=== PATIENT | female | born 1955 | race Caucasian/White ===

== ENCOUNTER → 2024-07-29 09:54 | Outpatient (REF) | payer MEDICARE, OTHER, SELFPAY | LOC: HWWDC 09:54 | PROVIDERS: ATTENDING PHYSICIAN Physician Assistant | DX: Z12.31 Encounter for screening mammogram for malignant neoplasm of breast (principal) | CPT/HCPCS: 77063; 77067 ==

== ENCOUNTER → 2024-08-06 09:58 | Outpatient (REF) | payer MEDICARE, OTHER, SELFPAY | LOC: WDC 09:58 | PROVIDERS: ATTENDING PHYSICIAN Physician Assistant | DX: R92.8 Other abnormal and inconclusive findings on diagnostic imaging of breast (principal) | CPT/HCPCS: 76642; 77065 ==

== ENCOUNTER → 2024-08-13 06:35 | Outpatient (REF) | payer MEDICARE, OTHER, SELFPAY ==
--- NOTE | 2024-08-13 12:55 | OID.BR.INTR ---
[facility] Breast Navigator - Initial
- -
Date of Contact: 08/13/24
Met with patient. Patient given written information on navigator service available at [facility]. Will follow up as needed per protocol.
== END ==
LOC: WDC 06:35
PROVIDERS: ATTENDING PHYSICIAN Physician Assistant
DX: N63.12 Unspecified lump in the right breast, upper inner quadrant (principal)
CPT/HCPCS: 88305; 19081; 19083; 76098; 88341; 88360; A4648

== ENCOUNTER → 2024-10-06 08:48 | Outpatient (REF) | payer MEDICARE, OTHER, SELFPAY | LOC: WDC 08:48 | PROVIDERS: ATTENDING PHYSICIAN Surgery | DX: C50.411 Malignant neoplasm of upper-outer quadrant of right female breast (principal) | CPT/HCPCS: 38792; 76942; A9541 ==

== ENCOUNTER 2024-10-07 06:07 | Inpatient (IN) | payer MEDICARE, OTHER, SELFPAY ==
[2024-09-17 11:22] LABS: Hematocrit 33.3 % (37.0-47.0); Hemoglobin 11.8 g/dL (12.0-16.0); Mean Corp Hgb Conc. 35.4 g/dL (33.0-37.0); Mean Corpuscular Hgb 32.4 pg (27.0-31.0); Mean Corpuscular Volume 91.5 fL (81.0-99.0); Mean Platelet Volume 9.6 fL (7.4-10.4); Platelet Count 220 10^3/uL (130-400); Red Blood Cell Count 3.64 10^6/uL (4.20-5.40); Red Cell Dist. Width 11.9 % (11.5-14.5); White Blood Cell Count 6.3 10^3/uL (4.8-10.8)
[2024-09-17 13:00] LABS: ALT (SGPT) 18 U/L (0-35); AST (SGOT) 26 U/L (14-36); Alkaline Phosphatase 61 U/L (38-126); Blood Urea Nitrogen 8 mg/dl (7-17); Calcium 9.2 mg/dl (8.4-10.2); Carbon Dioxide 31 mmol/L (22-30); Chloride 87 mmol/L (98-107); Glucose 104 mg/dl (70-99); Potassium 3.2 mmol/L (3.5-5.1); Sodium 129 mmol/L (135-145); Total Bilirubin 0.8 mg/dl (0.2-1.3); Total Protein 6.3 g/dl (6.3-8.2); eGFR > 60.00
[2024-09-17 13:10] LABS: Prealbumin (Transthyretin) 19.7 mg/dl (17.6-36.0)
[2024-09-17 13:26] LABS: Vitamin D, 25-OH*** 33.2 ng/mL (30-80)
[2024-09-17 13:57] VITALS: BMI 24.2
--- NOTE | 2024-09-30 11:01 | PTCARENOTE ---
Addendum entered by Rowena Deras RN 09/30/24 11:09:
Ana in Dr. Santana's office made aware also.
Original Note:
Radha and Becky in office made aware of K 3.2 and Na 129.
--- NOTE | 2024-09-30 12:34 | CM ---
CM left message for patient to discuss home care options.
--- NOTE | 2024-09-30 14:55 | PTCARENOTE ---
Addendum entered by Jeanette Escobar 09/30/24 15:33:
Dr Mathur aware of labwork. Patient to have repeat BMP as outpatient prior to surgery.
Original Note:
Abnormal Na 129, K+3.2 collected 09/17/24, and Abnormal ECG 09/17/[address] Lewis.
Patient will need repeat BMP. No further intervention requested for ECG.
Above lab results from 09/17/24 sent by TT to Noe at Dr Mathur's office. Awaiting further recommendation.
--- NOTE | 2024-10-02 12:28 | CM ---
Addendum entered by Nkechi Alvarado RN 10/02/24 13:50:
CM spoke with patient via phone. CM confirmed demographics. Patient lives independently with . Patient does not have a history of VN, SNF or DME. Patient is active with her PCP. Patient uses [facility] for medication services.
CM discussed home care options. Patient stated that she didn't understand why she would need a VN. CM explained VN would provide support for patient's drains and would provide education. CM further explained nursing staff would provide intitial
education on drain care prior to leaving hospital. Patient was appreciative of explanation and stated it made her 'feel better' that an RN would come out to assist. Patient mistook VN as DIRECTOR OF CONTENT AND PROGRAMMING care and she felt that she was independent enough to not
need that service.
Patient expressed relief that she would have support at home. She stated that she would be agreeable to [facility]. CM updated [facility] admission RN.
CM provided patient with this CM's contact information and encourage further questions.
PLAN: home with [facility].
Original Note:
CM left message on patient's cell phone to discuss home care.
--- NOTE | 2024-10-02 14:03 | VNURNOTE ---
Chart reviewed. [facility] liaison will meet with patient after admitted to . Referral placed in [facility].
[2024-10-07] VITALS (13 sets, daily range): BP systolic 30–140; BP diastolic 67–87; BMI 24.2
[2024-10-07] MEDS: TYLENOL 1000 MG PO ×3 (07:04→19:36)
[2024-10-07] MEDS: LOVENOX 40 MG SC (07:04)
--- NOTE | 2024-10-07 07:05 | W.SUR.PREOP ---
Pre-Operative Surgical Note
-
I have examined this patient prior to the performance of the scheduled procedure.
The patient's condition is unchanged from the time of the current History and
Physical and the patient is able to undergo the scheduled procedure.
[2024-10-07] MEDS: NORMOSOL-R/PLASMALYTE-A 1000 IV (07:12)
[2024-10-07 08:21] LABS: Carbon Dioxide 29 mmol/L (22-30); Chloride 94 mmol/L (98-107); Potassium 3.2 mmol/L (3.5-5.1); Sodium 133 mmol/L (135-145)
--- NOTE | 2024-10-07 11:16 | W.IMMPOSTOP ---
Surgical Immed Post Op Note
-
Primary Surgeon: Kevan
Assisting Surgeon: None
Pre-op Diagnosis: Right breast DCIS
Post-op Diagnosis: Right breast DCIS
Procedure Performed: Right mastectomy and sentinel node mapping and biopsy
Anesthesia Type: General LMA
Specimen / Cultures: Right breast, sentinel nodes
Estimated Blood Loss: 10cc
Complications: None
Operative Findings: Neg nodes on frozen
--- NOTE | 2024-10-07 11:19 | OR.RPT ---
Operative Report
Operative Report
Pre-Op DX: Right breast DCIS
Post-Op DX: Right breast DCIS
Procedure: right mastectomy sentinel lymph node mapping and biopsy
Date of surgery: 10/07/24
Surgeon: Kevan
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 Santana.
On the day prior to the procedure the patient presented to the [facility] center where technetium radiotracer was injected into the breast parenchyma. On the day of the surgery the patient presented to same-day surgical services. She was
prepped and DVT and antibiotic prophylaxis were provided. She verified site and procedure.
Was taken to the operating room and in the supine position general anesthesia was induced. Right breast and axilla were prepped and draped in usual sterile fashion. An appropriate timeout was performed by all staff members. Plastic surgery had
marked the incision which was circumareolar with possible extension inferiorly to form a keyhole incision.
A complete circumareolar incision was made sharply with the blade. Skin flaps were elevated using the PlasmaBlade and a lighted retractor. Dissection was carried down to the chest wall and the breast was taken off the chest and in a superior to
inferior direction. Time out of body was noted and the specimen was oriented for the pathologist and sent for immediate analysis.
Next the axilla was entered by incising clavipectoral fascia and a neoprobe identified 3 sentinel node packets which were excised. Feeding vessels were controlled with 3-0 silk. Frozen section analysis on the nodes was negative. Hemostasis was
verified. Warm pack was placed and the resection bed and plastic surgery entered to begin the reconstructive portion of the procedure.
All sponge needle and instrument counts were correct at this juncture and the blood loss to this point was 10 cc.
([id number], [id number])
Pangburn Node Bx Breast Cancer
Pangburn Node Bx Breast Cancer
Operation performed with curative intent: Yes
Tracer(s) to ID Pangburn Nodes in Non-Neoadjuvant setting: Radioactive Tracer
Tracer(s) to ID Sentinal Nodes in the Neoadjuvant Setting: N/A
All nodes at end of dye-filled Lymphatic Channel removed: N/A
All Significantly Radioactive Nodes were removed: Yes
All Palpably Suspicious Nodes were Removed: Yes
Bx Proven Pos Nodes Marked Prior to Chemo ID'd & Removed: N/A
--- NOTE | 2024-10-07 11:45 | W.IMMPOSTOP ---
Surgical Immed Post Op Note
-
Primary Surgeon: RHODA Santana MD
Assisting Surgeon:
Pre-op Diagnosis: Right breast CA
Post-op Diagnosis: Same
Procedure Performed: Right immediate breast reconstruction with tissue nursing home administrator, ADM mesh
Anesthesia Type: GA
Specimen / Cultures: Per Dr. Mathur
Estimated Blood Loss: 5cc
Complications: None
Operative Findings: As expected
--- NOTE | 2024-10-07 11:45 | OR.RPT ---
Operative Report
Operative Report
Surgeon: RHODA Santana MD
Preoperative diagnosis: Breast cancer
Postoperative diagnosis: Same
Procedure:
1. Immediate right breast reconstruction with prepectoral tissue drink waiter
2. Total anterior coverage technique for ADM wrap
Complications: None
Anesthesia: General
EBL:
[employer]er size: 14 cm
Indications for procedure: Patient was referred to me by Dr. Mathur with a recent diagnosis of breast cancer. She was planned to undergo unilateral mastectomy. We discussed her options for breast reconstruction at length including implant based
and autologous options. The patient opted for immediate reconstruction with tissue expanders. She understands that the final reconstruction will be staged. We also discussed the use of ADM and spy angiography. Risks include reconstructive
failure, capsular contracture, infection, delayed wound healing, mastectomy skin flap necrosis, hematoma, seroma and need for repeat procedure. Patient understood these risks and desired to proceed. Consents were signed accordingly.
Procedure in detail: Patient was identified the preoperative area and the surgical site was confirmed to be the breast. All questions were answered and consents were confirmed. Patient was then sat upright and normal anatomical landmarks were
marked including midline and inframammary fold. Patient was then taken back to the operating room placed supine on the table. She was prepped and draped in the usual sterile fashion using ChloraPrep solution. A Sandra catheter was placed. A
timeout for patient safety was performed was confirmed that bilateral SCDs were in place and preoperative antibiotics administered. The procedure began with Dr. Mathur first performing the mastectomy. Her op report will be dictated separately.
When I entered the procedure, the mastectomy had been completed. As such I inspected the wound bed of the chest wall and ensured meticulous hemostasis. The base width was measured and appropriate tissue drink waiter was selected. Two 6 x 16 sheets of
Cortiva ADM were soaked in dilute Betadine solution and passed through the skin graft mesher on carrier of 1-1.5. This construct was then draped around the tissue drink waiter in a total anterior coverage technique. The drink waiter ADM construct was then
sutured to the chest wall with a series of 2-0 silk sutures. Pectoralis and intercostal blocks were performed with Marcaine. 2 drains were then placed in the preaxial area line with a long subcutaneous tunnel and sutured in place with 2-0 Prolene
sutures. The wound was irrigated with double antibiotic solution and dilute Betadine. The mastectomy incisions were then closed with a series of 3-0 Vicryl's in the deep subcutaneous tissues followed by 3-0 and 4-0 Monocryl's in the deep dermis
and superficial skin.
The wounds were dressed accordingly and a supportive bra was placed. The patient was extubated taken to the PACU for further care. All counts were correct at the end the case was performed out complication.
[2024-10-07] MEDS: D5/0.45%NSS with KCL 20 MEQ 1000 IV ×2 (12:56→22:10)
[2024-10-07] MEDS: ULTRAM 100 MG PO (14:04)
--- NOTE | 2024-10-07 14:51 | VNURNOTE ---
Home Health Liaison met with patient and spouse at bedside to discuss [facility] nurse/therapy, visits, schedule and homebound status. Patient is agreeable and understands that visits at home will be 2-3 x per week to assess and teach medical and drain
management. [facility]2 [facility] after [facility] .
[facility]
[2024-10-07] MEDS: ANCEF 5 IV (15:29)
[2024-10-07] MEDS: LIPITOR 10 MG PO (17:23)
[2024-10-07] MEDS: BUSPAR 10 MG PO (19:36)
[2024-10-07] MEDS: NEURONTIN 600 MG PO (19:36)
[2024-10-07] MEDS: NEURONTIN 300 MG PO (21:47)
[2024-10-07] MEDS: VALIUM 5 MG PO (22:10)
[2024-10-08] MEDS: ANCEF 5 IV ×2 (00:18→07:46)
[2024-10-08] MEDS: TYLENOL 1000 MG PO ×2 (01:15→07:45)
[2024-10-08 04:00] VITALS: BP 135/80
[2024-10-08 07:31] LABS: Hematocrit 35.2 % (37.0-47.0); Hemoglobin 12.4 g/dL (12.0-16.0)
[2024-10-08 07:45] VITALS: BP 147/89
[2024-10-08] MEDS: ALTACE 10 MG PO (07:45)
[2024-10-08] MEDS: NEURONTIN 600 MG PO (07:45)
[2024-10-08] MEDS: LIPITOR 10 MG PO (07:46)
[2024-10-08] MEDS: TENORMIN 50 MG PO (07:46)
[2024-10-08] MEDS: BUSPAR 10 MG PO (07:46)
[2024-10-08] MEDS: ULTRAM 100 MG PO (08:02)
[2024-10-08 08:50] LABS: Blood Urea Nitrogen 22 mg/dl (7-17); Calcium 8.3 mg/dl (8.4-10.2); Carbon Dioxide 28 mmol/L (22-30); Chloride 91 mmol/L (98-107); Estimated Creatinine Clearance 50 ml/min; Glucose 126 mg/dl (70-99); Potassium 4.3 mmol/L (3.5-5.1); Sodium 131 mmol/L (135-145); eGFR > 60.00
--- NOTE | 2024-10-08 09:40 | CM ---
Cm reviewed medical records. Patient is anxious to be discharged. Plan for home with [facility]
PLAN: [facility].
--- NOTE | 2024-10-08 10:58 | W.DCSUMMARY ---
Discharge Summary
Discharge Data
Date of Admission: 10/07/24
Date of Discharge: 10/08/24
-
Pending Results: No
Hospital Course
Routine postoperative course following right mastectomy and immediate drapery hanger based reconstruction. Required some electrolyte correction. Chronic hyponatremia to be addressed by primary care physician.
Discharged with VN and close surgical follow up.
Discharge Plan
-
Patient Disposition: Home (Routine Discharge)
Discharge Diagnosis/Procedures: S/P R mastectomy and immediate drapery hanger recon
Condition: Good
Diet: Regular
Activity: No strenuous activity
Driving Restrictions: Not until seen by your Dr
Bathing Restrictions: OK to Shower
Other Services: VN
Wound Care: Dressings removed after 3-5 days or sooner if wet, Compressive bra, strip and record drain output twice daily
Referrals:
Tesah Menchaca PA-C [Family Provider] -
Prescriptions:
New
tramadol 50 mg Tablet
50 mg PO Q6HPRN PRN (Reason: pain) 7 Days Qty: 14 0RF
diazepam 5 mg Tablet
5 mg PO TIDPRN PRN (Reason: Muscle Spasms) 14 Days Qty: 42 0RF
cefadroxil 500 mg capsule
500 mg PO BID Qty: 42 0RF
Continued
hydrochlorothiazide 25 MG tablet
25 mg PO DAILY
atenolol 50 MG tablet
50 mg PO DAILY
ramipril 10 MG capsule
10 mg PO DAILY
atorvastatin 10 MG tablet
10 mg PO DAILY
multivitamin Tablet
1 tab PO DAILY
gabapentin 600 mg Tablet
600 mg PO BID
acetaminophen 500 mg Tablet
1,000 mg PO Q6H PRN (Reason: pain)
buspirone 10 mg Tablet
10 mg PO BID
Turmeric Curcumin Gummy
3 gum PO DAILY
Discharge Orders:
Discharge Patient (As Directed); Ordered 10/08/24
Ordered By: Phil Santana
Discharge Date and Time
Print Language: PORTUGUESE
[2024-10-08 11:37] VITALS: BP 135/68
[2024-10-08] MEDS: D5/0.45%NSS with KCL 20 MEQ IV (12:04)
--- NOTE | 2024-10-08 12:19 | W.PN.UPDATE ---
Update Note
Progress Note Update
The patient is POD #1 S/P right mastectomy and sentinel lymph node mapping and biopsy with immediate implant-based surg physician asst reconstruction. She is sitting up in bed and anxious to go home. She tolerated PO intake and has adequate pain control. No
evidence of bleeding.
Pt is ok for D/C will follow up with Dr. Santana next week and myself in 2 weeks. Pathology pending.
== END 2024-10-08 13:03 | disposition home health service (06) | DRG 580 ==
LOC: 2 SOUTH 06:07
PROVIDERS: Student in an Organized Health Care Education/Training Program; Surgery; ADMITTING PHYSICIAN Surgery Plastic and Reconstructive Surgery; FAMILY PHYSICIAN Physician Assistant
PROC: 0HHT0NZ Insertion of Tissue Expander into Right Breast, Open Approach (ICD-10-PCS; 2024-10-07)
PROC: 0HTT0ZZ Resection of Right Breast, Open Approach (ICD-10-PCS; 2024-10-07)
PROC: 07B50ZX Excision of Right Axillary Lymphatic, Open Approach, Diagnostic (ICD-10-PCS; 2024-10-07)
DX: D05.11 Intraductal carcinoma in situ of right breast (principal); E87.1 Hypo-osmolality and hyponatremia
CPT/HCPCS: 88307; 88332; 36415; 38792; 76942; 80048; 80051; 80053; 82306; 84134; 85014; 85018; 85027; 88331; 88342; 93005; A4648; A9541; C1789; Q4100

== ENCOUNTER → 2024-11-28 14:00 | Outpatient (REF) | payer MEDICARE, OTHER, SELFPAY | LOC: CLAB 14:00 | PROVIDERS: ATTENDING PHYSICIAN Surgery Plastic and Reconstructive Surgery | DX: L76.34 Postprocedural seroma of skin and subcutaneous tissue following other procedure (principal) | CPT/HCPCS: 87070; 87077; 87186; 87205 ==

== ENCOUNTER → 2025-01-02 10:37 | Outpatient (REF) | payer MEDICARE, OTHER, SELFPAY | LOC: RAD 10:37 | PROVIDERS: ATTENDING PHYSICIAN Physician Assistant | DX: C50.211 Malignant neoplasm of upper-inner quadrant of right female breast (principal); Z78.0 Asymptomatic menopausal state; N95.9 Unspecified menopausal and perimenopausal disorder | CPT/HCPCS: 77080 ==

== ENCOUNTER 2025-02-14 09:36 | Emergency (ER) | payer MEDICARE, OTHER, SELFPAY ==
[2025-02-14 09:42] VITALS: BP 132/83
--- NOTE | 2025-02-14 11:26 | ED.GENMED ---
History of Present Illness
General
Chief Complaint: Eye Problems
Source: patient and spouse
Exam Limitations: none
Time Seen by Provider: 02/14/25 10:48
Nursing documentation reviewed up to this point in time: agreed with
History of Present Illness
History of Present Illness:
69-year-old female with history as noted presents to the ER for evaluation of pain in the left thigh. Patient reports that she woke up this morning with pain and irritation of the left eye. Came to the ER for assessment. She thinks she may have
scratched it with a book while she was falling asleep. She says that she washed out the eye but does not think there is any foreign body and cannot recall getting anything into her eye. She says she has foreign body sensation, watering and
irritation. She denies any redness. She denies any vision loss or blurry vision. She denies any headache. She denies any other acute complaints. She follows with [facility] but says her last routine appointment was last year. She says she
had prior cataract surgery.
Past History
Past History
ED Past Medical History: HTN and Other (Alcohol withdrawal seizures in the past)
Social History
Alcohol: Binge drinker
Personal:
Living: with family
Family History
Family History: Unable to obtain
Review of Systems
Review of Systems
All Other Systems: ROS reviewed and negative except as documented in HPI and ROS
EENT: Reports other (Eye watering, pain)
Phy Exam
Physical Exam
Physical Exam:
General: Well appearing and non-toxic
HEENT: protecting airway; on exam of the eyes her pupils are equal round and reactive to light bilaterally and her extraocular movements are intact without pain; no hyphema or hypopyon; visual acuity as documented; she has no erythema, warmth,
tenderness or swelling in the periorbital region bilaterally; she has normal conjunctiva without injection bilaterally; on fluorescein examination she has no abrasion noted on right eye, on examination of the left eye she has a minor corneal
abrasion; no dendrites; eye pressures normal bilaterally (11R, 15L); no foreign body noted on thorough inspection including eversion of the lids and sweeping of the fornices
Neck: appears supple
CV: No evidence of cyanosis
Resp: No accessory muscle use
Abd: Non-distended
Extremities: No deformities
Neuro: Alert
Psych: Normal affect
Skin: Intact
Scores
Heart Failure Risk
Heart Failure Risk Score: Not Applicable
Heart Score for Chest Pain Patients
STEMI patient?: Not applicable
Withdrawal Assessment of Alcohol
Withdrawal Assessment Completed?: Not applicable
Course
Vital Signs
Initial and Last Documented VS:
Initial Vital Signs
Temp Pulse Resp BP Pulse Ox
36.9 C 79 21 132/83 98
02/14/25 09:42 02/14/25 09:42 02/14/25 09:42 02/14/25 09:42 02/14/25 09:42
Last Documented Vital Signs
Temp Pulse Resp BP Pulse Ox
36.9 C 79 21 132/83 98
02/14/25 09:42 02/14/25 09:42 02/14/25 09:42 02/14/25 09:42 02/14/25 11:32
MDM/Problems Addressed
Differential Diagnosis Includes:
Corneal abrasion, foreign body, glaucoma, conjunctivitis
MDM/Problems Addressed:
69-year-old female presents with pain, irritation and watering of the left eye as described above. Visual acuity normal, exam as above�consistent with corneal abrasion. No foreign body noted. She does not wear contacts. Will start antibiotic
drops. Artificial tears as needed. Advised NSAIDs. Follow-up with ophthalmology this week. Spoke about return precautions all questions answered.
*Pulse Oximetry
SaO2: 98
Oxygen Mode of Delivery: Room air
Patient hypoxic: no (98%)
*Critical Care Note
Total Time (30-74mins, 75-104mins- exclusive of procedures): Not Applicable
Data Reviewed
Source: patient and spouse
ED Attending Note
-
Portions of this chart may have been created with voice recognition software.� Occasional wrong word or��sound alike� substitutions may have occurred due to the inherent limitations of voice recognition software.
Discharge Plan
Departure
Patient Disposition: Home (Routine Discharge)
Date of Disposition: 02/14/25
Time of Disposition: 11:22
Patient with high blood pressure during this ER visit?: No
Discharge Problem:
Abrasion, corneal
Instructions: Corneal abrasion - ED (DC)
Prescriptions:
New
ofloxacin 0.3 % drops
1 drp ophthalmic (eye) QID Qty: 5 0RF
polyvinyl alcohol [Artificial Tears (polyvin alc)] 1.4 % drops
2 drp ophthalmic (eye) Q1H PRN (Reason: eye irritation) Qty: 15 0RF
No Action
hydrochlorothiazide 25 MG tablet
25 mg PO DAILY
atenolol 50 MG tablet
50 mg PO DAILY
ramipril 10 MG capsule
10 mg PO DAILY
atorvastatin 10 MG tablet
10 mg PO DAILY
multivitamin Tablet
1 tab PO DAILY
gabapentin 600 mg Tablet
600 mg PO BID
acetaminophen 500 mg Tablet
1,000 mg PO Q6H PRN (Reason: pain)
buspirone 10 mg Tablet
10 mg PO BID
Turmeric Curcumin Gummy
3 gum PO DAILY
tramadol 50 mg Tablet
50 mg PO Q6HPRN PRN (Reason: pain) 7 Days Qty: 14 0RF
diazepam 5 mg Tablet
5 mg PO TIDPRN PRN (Reason: Muscle Spasms) 14 Days Qty: 42 0RF
cefadroxil 500 mg capsule
500 mg PO BID Qty: 42 0RF
Referrals:
[facility] [Provider Group, Ophthalmology] - Call in 1-3 days for appt
Thompson Sutherland MD [Family Provider, Internal Medicine]
Activity Restrictions/Additional Instructions:
Thank you for visiting the Emergency Department at [facility].
1. Please schedule a follow up appointment as directed. Call first thing tomorrow morning to make an appointment.
2. If indicated, please take your medications as instructed and indicated on discharge paperwork.
3. If any of your symptoms do not improve, or persist, or become more severe within 6-12 hours, please return to the emergency department for further care.
4. Please return to the emergency department if you develop a headache, neck pain/stiffness, fever greater than 100.4F, chest pain, shortness of breath, persistent nausea, vomiting, slurred speech, difficulty walking, numbness/tingling, weakness,
signs of infection or any other symptoms that are worrisome to you.
Please call [phone] if you have any questions.
Interventions
Interventions:
*Risk Screen - Suicide Last Done: 02/14/25 09:42
*General Assessment Last Done: 02/14/25 09:42
*ED- Fall Risk Assessment Last Done: 02/14/25 09:42
*ED COVID-19 Vaccine History Last Done: 02/14/25 09:42
Discharge Date and Time
Print Language: SERBIAN
== END 2025-02-14 11:52 | disposition home or self-care (01) ==
LOC: EMR 09:36
PROVIDERS: EMERGENCY PHYSICIAN Emergency Medicine; FAMILY PHYSICIAN Internal Medicine
DX: S05.02XA Injury of conjunctiva and corneal abrasion without foreign body, left eye, initial encounter (principal); S05.01XA Injury of conjunctiva and corneal abrasion without foreign body, right eye, initial encounter; X58.XXXA Exposure to other specified factors, initial encounter; I10 Essential (primary) hypertension; Z98.49 Cataract extraction status, unspecified eye
CPT/HCPCS: 99282